=== PATIENT | male | born 1960 | race Caucasian/White ===

== ENCOUNTER 2020-06-08 11:05 | Day surgery (SDC) | payer OTHER ==
[2020-06-07 11:46] VITALS: BMI 23.6
[2020-06-08] MEDS ORDERED: PROPOFOL 20 ML ONE ×2 (12:11)
[2020-06-08] MEDS ORDERED: LIDOCAINE HCL/PF 2% SDV 5ML VIAL ONE (12:11)
[2020-06-08 13:15] VITALS: TEMP 98
[2020-06-08 13:24] VITALS: BP 109/65; PULSE 62
== END 2020-06-08 13:25 | disposition home or self-care (01) ==
LOC: FASU 11:05
PROVIDERS: ATTEND Internal Medicine Gastroenterology
PROC: 0DJD8ZZ Inspection of Lower Intestinal Tract, Via Natural or Artificial Opening Endoscopic (ICD-10-PCS; principal; 2020-06-08 12:31)
DX: Z09 Encounter for follow-up examination after completed treatment for conditions other than malignant neoplasm (principal); Z86.010 Personal history of colon polyps; K64.1 Second degree hemorrhoids; K57.30 Diverticulosis of large intestine without perforation or abscess without bleeding